=== PATIENT | male | born 1955 | race Caucasian/White ===

== ENCOUNTER → 2019-09-16 12:02 | Emergency (ER) | payer SELFPAY ==
--- NOTE | 2019-09-16 12:02 | NUR ---
UPON ARRIVAL TO ER, PT REFUSED TO BE SEEN AND EVALUATED. PT WITH STEADY GAIT AND ALERT/ORIENTED. DR GUILLORY SPEAKING WITH PT. PT DECIDED TO AMA.
== END | disposition left against medical advice (07) ==
LOC: SED 12:02
DX: R55 Syncope and collapse (principal)
CPT/HCPCS: 99281